=== PATIENT | female | born 2000 | race Caucasian/White ===

== ENCOUNTER → 2021-10-23 | Outpatient (CLI) | payer OTHER ==
--- NOTE | 2021-10-23 17:17 | CONS ---
CONSULTATION DATE OF SERVICE: 10/23/2021 This 21-year-old lady has [facility] for possible obstructive sleep apnea-hypopnea syndrome. HISTORY OF PRESENT ILLNESS/SLEEP-WAKE EVALUATION: Patient's usual sleep schedule is from 12 to 1 a.m. until 7:15 a.m. basically 7 days a week. No problems with falling asleep, although she has a TV set in the bedroom. She sleeps on the side and stomach positions. She has very loud snoring and she wakes up from sleep once with nocturia, dry mouth, sweating and grinding teeth. In the morning the patient wakes up tired, has difficulties paying attention, has problems with memory, concentration, irritability, depression, anxiety. [place] Sleepiness Scale is 3. Normally she does not take any naps. She takes 150 to 200 mg of caffeine daily. No history of hypnagogic hallucinations, sleep paralysis or cataplexy. PAST MEDICAL HISTORY: Positive for asthma, allergies, depression, anxiety. PAST SURGICAL HISTORY: [place] tooth removed. MEDICATIONS: 1. Venlafaxine 175 mg once a day. 2. Zyrtec 10 mg once a day. 3. Albuterol as needed. 4. control pills. SOCIAL HISTORY: Positive for using marijuana. Alcohol consumption: None. FAMILY HISTORY: Positive for sleep apnea, hypertension, heart problems, asthma, thyroid problems. REVIEW OF SYSTEMS: Awakenings from sleep, episodes of shortness of breath during exercise, snoring, tiredness. No fevers. No double vision. No recent chest pain. No shortness of breath. No abdominal pain. No bleeding episodes. No blood in the urine. No seizure episodes. PHYSICAL EXAMINATION: GENERAL: Pleasant patient in no distress. VITAL SIGNS: BP 122/78, HR 88, RR 16, height 5 feet 2-1/2 inches, weight 155.2 pounds, body mass index 27.8, temperature 97.6, oxygen saturation at room air 97%. HEENT: PERRLA, EOMI, evaluation of oropharynx showed tongue protrudes midline. Low position of soft palate; Mallampati III. NECK: Supple, no JVD. Thyroid is not palpable. Neck measures 13-1/2 inches in circumference. LUNGS: Clear to percussion and to auscultation. Good air exchange. No wheezing or rhonchi. HEART: S1, S2 regular. No murmurs, gallops, or rubs. ABDOMEN: Soft and nontender. Bowel sounds are present. No organomegaly appreciated. EXTREMITIES: No clubbing or cyanosis. [employer]: Awake, alert, and oriented X3. Cranial nerves 2 to 7 intact. There is no fasciculation or atrophy. noted. No focal deficits observed. IMPRESSION: 1. Loud snoring, witnessed episodes of stopped breathing during sleep, low position of soft palate, Mallampati III, awakenings from sleep with nocturia; possible obstructive sleep apnea-hypopnea syndrome. 2. Asthma. 3. Allergies. 4. History of depression. 5. History of anxiety. PLAN: 1. Polysomnography for evaluation of patient's breathing during sleep. 2. CPAP/BiPAP titration if sleep study confirms obstructive sleep apnea-hypopnea syndrome. 3. Preferable position during sleep on the side. 4. No driving if patient feels any sleepiness. 5. I will see patient for follow up visit to explain results of testing and following plan. Thank you very much for referring this patient for consultation. Sincerely, David Bartlett MD, PhD, FAASM Diplomat of [employer] Sleep Medicine [employer] of [employer] [facility] [place] MMODL / IJN: [id number] /
== END ==
LOC: SLEEP 16:12
PROVIDERS: ATTEND Internal Medicine
DX: G47.8 Other sleep disorders (principal); R06.83 Snoring; R35.1 Nocturia; J45.909 Unspecified asthma, uncomplicated; T78.40XA Allergy, unspecified, initial encounter; F32.A Depression, unspecified; F41.9 Anxiety disorder, unspecified
CPT/HCPCS: 99211